=== PATIENT | male | born 1970 | race Caucasian/White ===

== ENCOUNTER 2017-05-24 07:49 | Emergency (ER) | payer OTHER ==
[~2017-05-24] VITALS: Ht 177.8 cm; Wt 83.5 kg
[2017-05-24] MEDS ORDERED: MOTRIN800 MG PO (08:25)
[2017-05-24] MEDS ORDERED: PROCTOCREAM-HC30 GM PR (08:25)
[2017-05-24 08:39] VITALS: BP 135/86
== END 2017-05-24 08:40 | disposition home or self-care (01) ==
LOC: EME 07:49
DX: K64.4 Residual hemorrhoidal skin tags (principal)
CPT/HCPCS: 99281; 99283

== ENCOUNTER 2017-09-05 02:31 | Emergency (ER) | payer OTHER ==
[~2017-09-05] VITALS: Ht 177.8 cm; Wt 83.1 kg
[~2017-09-05 02:31] MED LIST: MOTRIN800 MG PO; PROCTOCREAM-HC30 GM PR
[2017-09-05 03:18] LABS: HEMATOCRIT 43.1 % (38.0-50.0); MCH 32.5 PG (29.0-34.0); MCHC 34.8 G/DL (30.0-36.0); MCV 93.5 FL (86-99); PLATELET COUNT 161 K/uL (156-360); RBC DIS.WIDTH-CV 12.4 % (11.8-14.6); RBC DIS.WIDTH-SD 42.6 % (39-53); RED BLOOD COUNT 4.61 M/uL (4.00-5.50); WHITE BLOOD COUNT 7.4 K/uL (4.1-10.2)
[2017-09-05 03:28] LABS: CHLORIDE 106 mEq/L (99-109); POTASSIUM 3.8 mEq/L (3.7-5.4); SODIUM 141 mEq/L (136-147)
[2017-09-05 03:30] LABS: GLUCOSE 95 mg/dL (70-99)
[2017-09-05 03:34] LABS: CREATININE 0.9 mg/dL (0.6-1.3); GFR ESTIMATE (CALCULATED) > 59 mL/min/ (58.99-99999); UREA NITROGEN (BUN) 19 mg/dL (9-23)
[2017-09-05 03:39] LABS: TROP-I INTERPRETATION NEGATIVE; TROPONIN-I < 0.01 ng/mL (0.0-0.30)
[2017-09-05] MEDS ORDERED: ZANTAC150 MG PO (04:14)
[2017-09-05 04:25] VITALS: BP 146/98
== END 2017-09-05 04:48 | disposition home or self-care (01) ==
LOC: EME 02:31
PROVIDERS: Emergency Medicine
DX: R07.89 Other chest pain (principal); I45.4 Nonspecific intraventricular block; F17.200 Nicotine dependence, unspecified, uncomplicated; Z82.49 Family history of ischemic heart disease and other diseases of the circulatory system
CPT/HCPCS: 71046; 80048; 84484; 85027; 93005; 99281; 99284